=== PATIENT | male | born 1965 | race Caucasian/White ===

== ENCOUNTER 2019-01-09 12:20 | Day surgery (SDC) | payer MEDICAID ==
[~2019-01-09] VITALS: Ht 175.3 cm; Wt 88.2 kg
[~2019-01-09 12:20] MED LIST: AMLO-512 PO; ASPI-556 PO; ATOR40TA28 PO; CARV25 PO; FURO40 PO; LOSA50TA64 PO; SODIUM CHLORIDE 0.9% 1,000 ML IV ONE; SPIR25 PO
[2019-01-09] MEDS ORDERED: PROPOFOL 1% 20 ML VIAL IVP ONE (12:21)
[2019-01-09] MEDS ORDERED: LIDOCAINE/PF 2% 5 ML VIAL INJ ONE (12:21)
[2019-01-09] MEDS ORDERED: SODIUM CHLORIDE 0.9% 1,000 ML IV ONE (13:30)
== END 2019-01-09 15:55 | disposition home or self-care (01) ==
LOC: SURGERY 12:20 → EDSEX 15:30 → SURGERY 15:55
PROVIDERS: ATTEND Student in an Organized Health Care Education/Training Program
DX: Z12.11 Encounter for screening for malignant neoplasm of colon (principal); K57.30 Diverticulosis of large intestine without perforation or abscess without bleeding; K64.8 Other hemorrhoids; I10 Essential (primary) hypertension; I25.10 Atherosclerotic heart disease of native coronary artery without angina pectoris; Z86.79 Personal history of other diseases of the circulatory system; Z95.5 Presence of coronary angioplasty implant and graft; Z79.82 Long term (current) use of aspirin; Z79.02 Long term (current) use of antithrombotics/antiplatelets; Z79.899 Other long term (current) drug therapy
CPT/HCPCS: 45378; J2704; J3490; J7030